=== PATIENT | male | born 1975 | race Caucasian/White ===

== ENCOUNTER 2020-03-27 08:53 | Emergency (ER) | payer SELFPAY ==
[2020-03-27 09:36] LABS: Absolute Lymphocytes (CBC) 1.4 K/uL (0.7-4.9); Basophils % 0.4 % (0-1.3); Hematocrit 41.5 % (39.6-49.0); Lymphocytes % 18.5 % (15.3-44.8); MPV 8.1 fL (7.6-11.3); RBC Red Blood Cell Count 4.55 M/uL (4.33-5.43)
[2020-03-27 09:39] LABS: Protime INR 1.1
[2020-03-27 10:00] LABS: ALT/SGPT 20 U/L (12-78); AST/SGOT 22 U/L (15-37); Albumin 4.2 g/dL (3.4-5.0); Alkaline Phosphatase 52 U/L (45-117); BUN Blood Urea Nitrogen 26 mg/dL (7-18); Bicarbonate 24 mmol/L (21-32); Bilirubin Direct 0.4 mg/dL (0-0.2); Bilirubin Total 1.9 mg/dL (0.2-1.0); Glucose Level 108 mg/dL (74-106); Potassium 3.4 mmol/L (3.5-5.1); Protein, Total 7.5 g/dL (6.4-8.2); Sodium Level 141 mmol/L (136-145)
[2020-03-27 10:41] LABS: Urine Blood NEGATIVE (NEG); Urine Glucose NEGATIVE (NEG); Urine Protein 1+ (NEG); Urine Specific Gravity >1.030 (1.005-1.030)
[2020-03-27 10:43] LABS: Barbiturates NEGATIVE (NEGATIVE); Benzodiazepines NEGATIVE (NEGATIVE); Cocaine NEGATIVE (NEGATIVE); METHAMPHETAM NEGATIVE (NEGATIVE); Methadone NEGATIVE (NEGATIVE); Opiates NEGATIVE (NEGATIVE); Phencyclidine NEGATIVE (NEGATIVE); THC Cannibis POSITIVE (NEGATIVE)
[2020-03-27] MEDS ORDERED: NA CHLORIDE 0.9% 1,000 ML ONE (10:46)
[2020-03-27] MEDS ORDERED: LORazepam 2 MG/ML VIAL ONE (10:46)
--- NOTE | 2020-03-27 10:54 | ER ---
Nurse's Notes [facility] Name: Ramu Mendoza Age: 44 yrs Sex: Male : 1975 Arrival Date: 03/27/2020 Time: 08:54 Bed 2 Private MD: Diagnosis: Cannabis abuse Presentation: 03/27 08:54 Chief complaint: PER [place] [employer] "WE PICKED HIM UP FOR PI BUT ONCE HE GOT IN FRONT OF bp THE [employer] HE STARTED ACTING WEIRD. [facility] WANTS HIM CLEARED FOR INCARCERATION.". Coronavirus screen: At this time, the client does not indicate any symptoms associated with coronavirus-19. Ebola Screen: No symptoms or risks identified at this time. Initial Sepsis Screen: Does the patient meet any 2 criteria? No. Patient's initial sepsis screen is negative. Does the patient have a suspected source of infection? No. Patient's initial sepsis screen is negative. Risk Assessment: Do you want to hurt yourself or someone else? Patient reports no desire to harm self or others. Onset of symptoms is unknown. 08:54 Method Of Arrival: Law Enforcement: [place] bp 08:54 Acuity: ALLISON 3 bp Triage Assessment: 08:57 General: Appears in no apparent distress. comfortable, Behavior is agitated, anxious. bp Pain: Denies pain. EENT: No deficits noted. Neuro: Level of Consciousness is awake, alert, obeys commands, confused, Oriented to person, place, time, situation. Cardiovascular: No deficits noted. Respiratory: No deficits noted. GI: No signs and/or symptoms were reported involving the gastrointestinal system. : No signs and/or symptoms were reported regarding the genitourinary system. Derm: No deficits noted. Musculoskeletal: No deficits noted. Historical: - Allergies: 08:57 No Known Allergies; bp - Home Meds: 08:57 Unable to obtain [Active]; bp - PMHx: 08:57 Unable to obtain; bp - Immunization history:: Adult Immunizations unknown. - Social history:: Smoking status: Patient reports the use of cigarette tobacco products, unknown amount. Screenin:58 Abuse screen: Denies threats or abuse. Denies injuries from another. Nutritional bp screening: No deficits noted. Tuberculosis screening: No symptoms or risk factors identified. Fall Risk None identified. Assessment: 08:58 General: SEE TRIAGE NOTE. bp 10:41 Reassessment: IVF INFUSING, RESULTS PENDING FOR DISPO. PD AT B/S. bp 11:27 Reassessment: PT D/C AMBULATORY WITH [employer]. DX WITH CANNABIS ABUSE. bp Vital Signs: 09:00 BP 154 / 90; Pulse 80; Resp 16; Temp 98; Pulse Ox 100% ; bp 10:01 BP 124 / 85; Pulse 100; Resp 16; Pulse Ox 100% ; bp 10:42 BP 119 / 85; Pulse 79; Resp 20; Pulse Ox 100% ; bp ED Course: 08:54 Patient arrived in ED. bp 08:55 Chadd Mcdonald, JENNIFER is PHCP. pm1 08:55 Shawn Bernabe MD is Attending Physician. pm1 08:56 Triage completed. bp 08:57 Arm band placed on. bp 08:58 Patient has correct armband on for positive identification. Bed in low position. Call bp light in reach. Side rails up X2. 09:15 Inserted saline lock: 22 gauge in left antecubital area, using aseptic technique. Blood kj1 collected. 09:18 Oscar Guzman, RN is Primary Nurse. bp 09:21 Initial lab(s) drawn, by ia, sent to lab. kj1 11:25 No provider procedures requiring assistance completed. IV discontinued, intact, bp bleeding controlled, No redness/swelling at site. Pressure dressing applied. Administered Medications: 10:30 Drug: NS 0.9% 1000 ml Route: IV; Rate: 1000 ml; Site: left antecubital; bp 11:26 Follow up: IV Status: Completed infusion; IV Intake: 1000ml bp 10:35 Drug: Ativan 1 mg Route: IVP; Site: left antecubital; bp 11:26 Follow up: Response: Anxiety decreased bp Intake: 11:26 IV: 1000ml; Total: 1000ml. bp Outcome: 10:54 Discharge ordered by . pm1 11:24 Discharged to Law enforcement ([place] [employer], pt under police custody) aa5 11:24 Condition: stable 11:26 Patient left the ED. aa5 Signatures: Nani Nathan RN RN aa5 Chadd Mcdonald, JENNIFER [employer] pm1 Oscar Guzman RN RN bp Jackson, Kandis kj1
--- NOTE | 2020-03-27 10:54 | EDPHYS ---
Physician Documentation [facility] Name: Ramu Mendoza Age: 44 yrs Sex: Male : 1975 Arrival Date: 03/27/2020 Time: 08:54 Bed 2 Private MD: ED Physician Shawn Bernabe HPI: 03/27 09:01 This 44 yrs old Male presents to ER via Law Enforcement with complaints of pm1 Medical Clearance. 09:01 Patient is here for [facility]. He is under [place] police pm1 custody. 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 It is unknown whether or not the patient has had similar symptoms in the past. The patient has not recently seen a physician. Historical: - Allergies: :57 No Known Allergies; bp - Home Meds: : Unable to obtain [Active]; bp - PMHx: :57 Unable to obtain; bp - Immunization history:: Adult Immunizations unknown. - Social history:: Smoking status: Patient reports the use of cigarette tobacco products, unknown amount. ROS: 09:01 Constitutional: Negative for fever, chills, and weight loss, Eyes: Negative for injury, pm1 pain, redness, and discharge, ENT: Negative for injury, pain, and discharge, Neck: Negative for injury, pain, and swelling, Cardiovascular: Negative for chest pain, palpitations, and edema, Respiratory: Negative for shortness of breath, cough, wheezing, and pleuritic chest pain, Abdomen/GI: Negative for abdominal pain, nausea, vomiting, diarrhea, and constipation, Back: Negative for injury and pain, MS/Extremity: Negative for injury and deformity, Skin: Negative for injury, rash, and discoloration, Neuro: Negative for headache, weakness, numbness, tingling, and seizure. 09:01 Psych: Negative for auditory hallucinations, visual hallucinations, homicidal ideation, suicide gesture, suicidal ideation. Exam: 09:01 Constitutional: This is a well developed, well nourished patient who is awake, alert, pm1 and in no acute distress. Head/Face: Normocephalic, atraumatic. Eyes: Pupils equal round and reactive to light, extra-ocular motions intact. Lids and lashes normal. Conjunctiva and sclera are non-icteric and not injected. Cornea within normal limits. Periorbital areas with no swelling, redness, or edema. ENT: Nares patent. No nasal discharge, no septal abnormalities noted. Tympanic membranes are normal and external auditory canals are clear. Oropharynx with no redness, swelling, or masses, exudates, or evidence of obstruction, uvula midline. Mucous membranes moist. Neck: Trachea midline, no thyromegaly or masses palpated, and no cervical lymphadenopathy. Supple, full range of motion without nuchal rigidity, or vertebral point tenderness. No Meningismus. 09:01 Back: No spinal tenderness. No costovertebral tenderness. Full range of motion. Skin: Warm, dry with normal turgor. Normal color with no rashes, no lesions, and no evidence of cellulitis. MS/ Extremity: Pulses equal, no cyanosis. Neurovascular intact. Full, normal range of motion. 09:01 Cardiovascular: Exam negative for acute changes, Rate: normal, Rhythm: regular, Pulses: no pulse deficits are appreciated. 09:01 Respiratory: Exam negative for acute changes, respiratory distress, shortness of breath. 09:01 Abdomen/GI: Exam negative for acute changes, Inspection: abdomen appears normal, Palpation: abdomen is soft and non-tender, in all quadrants. 09:01 Neuro: Orientation: is normal, Mentation: is normal, Motor: is normal, moves all fours. Vital Signs: 09:00 BP 154 / 90; Pulse 80; Resp 16; Temp 98; Pulse Ox 100% ; bp 10:01 BP 124 / 85; Pulse 100; Resp 16; Pulse Ox 100% ; bp 10:42 BP 119 / 85; Pulse 79; Resp 20; Pulse Ox 100% ; bp MDM: 09:00 Patient medically screened. [facility] 09:51 Data reviewed: vital signs. Data interpreted: Pulse oximetry: on room air is 100 %. pm1 Interpretation: normal. 10:52 Counseling: I had a detailed discussion with the patient and/or guardian regarding: the pm1 historical points, exam findings, and any diagnostic results supporting the discharge/admit diagnosis, lab results, the need for outpatient follow up, to return to the emergency department if symptoms worsen or persist or if there are any questions or concerns that arise at home. 03/27 09:02 Order name: Acetaminophen; Complete Time: 10:07 pm1 03/27 09:02 Order name: Basic Metabolic Panel; Complete Time: 10:07 pm1 03/27 09:02 Order name: CBC with Diff; Complete Time: 09:51 pm1 03/27 09:02 Order name: ETOH Level; Complete Time: 10:07 pm1 03/27 09:02 Order name: Hepatic Function; Complete Time: 10:07 pm1 03/27 09:02 Order name: PT-INR; Complete Time: 09:43 pm1 03/27 09:02 Order name: Ptt, Activated; Complete Time: 09:43 pm1 03/27 09:02 Order name: Salicylate; Complete Time: 10:51 pm1 03/27 09:02 Order name: Urine Drug Screen; Complete Time: 10:51 pm1 03/27 09:02 Order name: EKG; Complete Time: 09:03 pm1 03/27 09:02 Order name: EKG - Nurse/Tech; Complete Time: 09:27 pm1 03/27 10:15 Order name: Urine Dipstick--Ancillary (enter results); Complete Time: 10:51 mt 03/27 09:02 Order name: IV Saline Lock; Complete Time: 09:27 pm1 03/27 09:02 Order name: Labs collected and sent; Complete Time: 09:27 pm03/27 09:02 Order name: Urine Dipstick-Ancillary (obtain specimen); Complete Time: 10:31 pm1 Administered Medications: 10:30 Drug: NS 0.9% 1000 ml Route: IV; Rate: 1000 ml; Site: left antecubital; bp 11:26 Follow up: IV Status: Completed infusion; IV Intake: 1000ml bp 10:35 Drug: Ativan 1 mg Route: IVP; Site: left antecubital; bp 11:26 Follow up: Response: Anxiety decreased bp Disposition: 03/27/20 10:54 Discharged to Home. Impression: Cannabis abuse. - Condition is Stable. - Medication Reconciliation Form, Thank You Letter, Antibiotic Education, Prescription Opioid Use form. - Follow up: Emergency Department; When: As needed; Reason: Worsening of condition. Follow up: Private Physician; When: 2 - 3 days; Reason: Recheck today's complaints, Continuance of care, Re-evaluation by your physician. - Problem is new. - Symptoms have improved. Addendum: 03/28/2020 11:58 Co-signature as Attending Physician, Shawn Bernabe MD I agree with the assessment and c sanders plan of care. Signatures: Dispatcher [employer] EDShawn Gupta MD MD cha Calderon, Audri, RN RN aa5 Chadd Mcdonald, LOADING DOCK HAND LOADING DOCK HAND pm1 Oscar Guzman RN RN bp Corrections: (The following items were deleted from the chart) 03/27 11:26 10:54 03/27/2020 10:54 Discharged to Home. Impression: Cannabis abuse. Condition is aa5 Stable. Forms are Medication Reconciliation Form, Thank You Letter, Antibiotic Education, Prescription Opioid Use. Follow up: Emergency Department; When: As needed; Reason: Worsening of condition. Follow up: Private Physician; When: 2 - 3 days; Reason: Recheck today's complaints, Continuance of care, Re-evaluation by your physician. Problem is new. Symptoms have improved. pm1
== END 2020-03-27 11:26 | disposition home or self-care (01) ==
LOC: ER 08:53
DX: F12.10 Cannabis abuse, uncomplicated (principal); Z72.0 Tobacco use
CPT/HCPCS: 36415; 80048; 80076; 80307; 80320; 80329; 81003; 85025; 85610; 85730; 96361; 96374; 99283; J7030